=== PATIENT | female | born 1955 | race Two or more races ===

== ENCOUNTER 2016-06-26 20:16 | Emergency (ER) | payer SELFPAY ==
[~2016-06-26] VITALS: Ht 165.1 cm; Wt 49.9 kg
[2016-06-26 20:20] VITALS: BP 111/73
== END 2016-06-26 21:15 | disposition home or self-care (01) ==
LOC: ER 20:16
DX: Z76.0 Encounter for issue of repeat prescription (principal); E78.00 Pure hypercholesterolemia, unspecified; F17.200 Nicotine dependence, unspecified, uncomplicated
CPT/HCPCS: A4606; Z7610